=== PATIENT | male | born 1935 | race Caucasian/White ===

== ENCOUNTER 2019-10-06 23:16 | Inpatient (IN) ==
[2019-10-06] MEDS ORDERED: ONDANSETRON INJ 2 MG/ML 2 ML VIAL IV STA (23:25)
[2019-10-06] MEDS ORDERED: SODIUM CHLORIDE 0.9% 1000ML 500 ML IV ONE (23:25)
--- NOTE | 2019-10-06 23:30 | Emergency Department Note ---
Impression & Plan Acute distention of stomach, Vomiting ED Provider Note Name: SALONI MEDINA Age: 83 Sex: M Arrives Via: Ambulance Informant: EMS ED Provider: Chico Conner MD Chief Complaint: Vomiting Impression: Acute distension of stomach Vomiting Medical Decision Makin yr old male with advanced dementia as well as HTN, GERD, Hypothyroid and limited known history sent to ED by residential for evaluation of several hours vomiting. Reportedly diarrhea for several days and may have been consuming his own feces. By exam and CT seems Gallbladder removed in past though not noted in notes. His abdomen is soft/non-surgical. There is side note about stopping Cou madin on intermediate notes though unclear why/when. He was given zofran on arrival and no further vomiting. Labs unremarkable. CT done reveals gastric distension but otherwise no clear abnormalities requiring surgical intervention. Given amount gastric distension and vomiting at intermediate I think obs here with bowel rest and monitoring indicated. As single dose zofran seems to have stopped him vomiting at current, and his significant dementia issues, will hold off on NG tube at present unless further vomiting or other concerns. There is pneumobilia but with vomiting and GB removal and without lft elevation no indication this is cause/infectious etiology. Unclear whether eating feces may be contributing though without fever nor wbc elevation I don't see any indication for abx at this time. Prior Medical Record and Triage/Nursing Notes reviewed by Me Additional history obtained from residential Differentials:Gastroenteritis, food borne illness, infections, appendicitis, diverticulitis, inflammatory bowel disease, obstruction, GI bleed, biliary pathology, volvulus, as well as other pathologies. Vital Signs: reviewed and remarkable for no significant abnormalities Interventions: Saline lock, zofran 4mg IV, iv fluids Labs:Reviewed and remarkable for no significant abnormalities Imaging:[facility] Radiologist interpretation reviewed by me: CT abdo pelv wo con: Gastric distension, pneumobilia EKG:Per My Interpretation: Indication Vomiting: NSR 77 bpm, qtc 454. No Ec topy. No Ischemia. No previous for comparison Cardiac/Tele Monitoring: Cardiac Monitoring: An Order was placed for continuous cardiac monitoring. The monitor shows a rate of 80 with a normal sinus rhythm. Consults:Dr Ariel Lawrence hospitalist Plan: Disposition:Hospitalization. Condition: Fair Blood pressure:Normal.No Referral necessary Prescriptions:none PDMP: none History of Present Illness:83 / M arrives for evaluation of vomiting. Patient with history dementia, gerd, htn, hypothyroidism who arrives from local intermediate following several episodes of vomiting. Vomiting started this evening. He had been hving diarrhea which has been ongoing for several days apparently. No medications given. No vomiting en route nor dry heaving noted by EMS. Patient without difficulty breathing, nor fevers. Reportedly he ate some of his own feces at some point in the last few days per intermediate. Nothing seems to make vomiting better/worse. Unknown if sick contact. Patient with dementia and unable to give story. Unknown if previous surgical history. ROS: Unable to obtain secondary to dementia Past Medical History:GERD, HTN, Hypothyroid, Dementia (per intermediate paperwork) Past Surgical History:Unable to obtain secondary to dementia Family History:Unable to obtain secondary to dementia Social History:Lives in intermediate. Unable to obtain secondary to dementia Home Medications:See Below Allergies:Per chart heparin, bactrim Vitals:Blood Pressure: 117/65, Pulse 86, RR 19, T 37C, O2 100% on RA Physical Exam: GENERAL: Patient is chronically unwell appearing and in no acute distress. Severe dementia periodically mumbling to himself EYES: No scleral icterus, unremarkable pupils. ENT: Mucous membranes moist, no nasal congestion. NECK: No masses appreciated, nomeningismus, trachea is midline. RESPIRATORY: No dyspnea. Clear to auscultation and equal bilaterally. No wheeze, no rhonchi. CARDIOVASCULAR: Regular rate and rhythm.No murmurs, rubs, gallops appreciated. GASTROINTESTINAL: Hyperactive bowel sounds without significant distention and no TTP. There are no clear surgical scars though difficult to tell if old port scar umbilicus. BACK: No midline tenderness, no CVA tenderness EXTREMITIES: Normal motion all extremities, no cyanosis, no edema. NEUROLOGIC: Severe dementia, no acute motor or sensory deficits, no focal weakne ss, cranial nerves grossly intact. SKIN: No rash, no jaundice, no diaphoresis. ED Course: Times/Reassessments: Stable, no further vomiting Chico Conner MD Past Med/Surg History Social History Feels Safe at Home: Yes Smoking Status: Unknown if ever smoked Allergies Allergies Allergy/AdvReac Type Severity Reaction Status Date / Time heparin Allergy Unknown Unknown Verified 10/07/19 00:11 sulfamethoxazole Allergy Unknown Unknown Verified 10/07/19 00:11 [From Bactrim] trimethoprim [From Bactrim] Allergy Unknown Unknown Verified 10/07/19 00:11 Home Meds Home Medications Medication Instructions Recorded Confirmed acetaminophen [Tylenol] 650 mg PO DAILY PRN 10/06/19 10/07/19 artificial tears(hypromellose) 1 drp OPHTHALMIC (EYE) HS PRN 10/06/19 10/06/19 [Systane Gel] quetiapine [Seroquel] 100 mg PO DAILY 10/06/19 10/06/19 vitamins A,C,Y-[id number]-zadpkw 1 tab PO DAILY 10/06/19 10/06/19 [PreserVision AREDS] Natural Balance Tears 1 drp INSTIL DIRECTED PRN 10/07/19 10/07/19 mirtazapine 45 mg PO HS 10/07/19 10/07/19 nitroglycerin 0.4 mg SUBLINGUAL DIRECTED 10/07/19 10/07/19 sodium chloride [Saline Mist] 2 spray INTRANASAL DIRECTED PRN 10/07/19 10/07/19 tramadol 25 mg PO Q4H PRN 10/07/19 10/07/19 Results & Data (ED) Vital Signs Vital Signs - 24 hr 10/06/19 23:30 10/06/19 23:42 10/07/19 00:00 Temperature 37.0 C Temperature Source Oral Pulse Rate 85 87 86 Pulse Rate from SpO2 Sensor 85 91 H Respiratory Rate 24 18 19 Respiratory Effort / Characteristics Non-Labored Respiratory Depth Normal Blood Pressure 127/71 136/68 117/65 Blood Pressure Mean 89 94 91 Pulse Oximetry 98 100 100 Oxygen Delivery Method Room Air Room Air Room Air Sepsis Recent Fever Within 48 Hours No Sepsis New/Unexplained Change in Mental Status No Sepsis Action Taken by Nursing No Action Required 10/07/19 00:30 10/07/19 01:01 10/07/19 01:30 Temperature Temperature Source Pulse Rate 78 76 110 H Pulse Rate from SpO2 Sensor 80 75 82 Respiratory Rate 24 20 16 Respiratory Effort / Characteristics Respiratory Depth Blood Pressure 130/74 123/82 133/79 Blood Pressure Mean 79 107 96 Pulse Oximetry 99 100 98 Oxygen Delivery Method Room Air Room Air Room Air Sepsis Recent Fever Within 48 Hours Sepsis New/Unexplained Change in Mental Status Sepsis Action Taken by Nursing 10/07/19 02:31 Temperature Temperature Source Pulse Rate 99 H Pulse Rate from SpO2 Sensor 98 H Respiratory Rate 18 Respiratory Effort / Characteristics Respiratory Depth Blood Pressure 97/54 L Blood Pressure Mean 55 Pulse Oximetry 93 Oxygen Delivery Method Room Air Sepsis Recent Fever Within 48 Hours Sepsis New/Unexplained Change in Mental Status Sepsis Action Taken by Nursing Laboratory Data Result diagrams: 10/06/19 23:35 10/06/19 23:35 Lab Results 10/06/19 10/06/19 10/06/19 Range/Units 23:35 23:35 23:43 WBC 5.20 (4.8-10.8) K/uL RBC 3.15 L (4.7-6.1) M/uL Hgb 10.5 L (14.0-18.0) g/dL Hct 31.9 L (42-52) % MCV 101.3 H (80-100) fL MCH 33.3 (25-34) pg MCHC 32.9 (32-36) g/dL RDW Std Deviation 53.1 H (36.4-46.3) fL RDW Coeff of Shayne 14.4 (11.5-14.5) % Plt Count 194 (130-400) K/uL MPV 9.5 (7.4-10.4) fL Immature Gran % (Auto) 0.2 % Neut % (Auto) 79.8 % Lymph % (Auto) 8.7 % [place] % (Auto) 10.0 % Eos % (Auto) 1.3 % Baso % (Auto) 0.0 % Immature Gran # (Auto) 0.01 (0.00-0.02) K/uL Neut # (Auto) 4.15 (1.4-6.5) K/uL Lymph # (Auto) 0.45 L (1.2-3.4) K/uL [place] # (Auto) 0.52 (0.11-0.59) K/uL Eos # (Auto) 0.07 (0-0.5) K/uL Baso # (Auto) 0.00 (0-0.2) K/uL PT (9.0-12.0) Seconds INR (0.9-1.1) Sodium 138 (136-145) mmol/L Potassium 4.4 (3.5-5.1) mmol/L Chloride 108 H (98-107) mmol/L Carbon Dioxide 24 (21-32) mmol/L Anion Gap 6.0 (3-11) BUN 19 H (7-18) mg/dl Creatinine 1.22 (0.6-1.4) mg/dl Est Cr Clr Drug Dosing Not Reportable Est GFR ( Amer) 64.0 Est GFR (Non-Af Amer) 55.3 BUN/Creatinine Ratio 15.6 (10-20) Glucose 116 H (70-99) mg/dl Calcium 8.6 (8.5-10.1) mg/dl Magnesium 1.6 L (1.8-2.4) mg/dl Total Bilirubin 0.3 (0.2-1) mg/dl Direct Bilirubin < 0.1 (0-0.2) mg/dl AST 28 (15-37) U/L ALT 20 (12-78) U/L Alkaline Phosphatase 168 H (45-117) U/L Troponin I < 0.015 (0-0.045) ng/ml Total Protein 7.1 (6.4-8.2) gm/dl Albumin 3.0 L (3.4-5.0) gm/dl Lipase 383 (73-393) U/L Procalcitonin (0-0.5) ng/ml Specimen Hemolysis Urine Color Dark Yellow Urine Appearance Cloudy A (Clear) Urine pH 5.0 (4.5-7.5) Ur Specific [place] 1.029 (1.000-1.030) Urine Protein 1+ H (Negative) Urine Glucose (UA) Negative (Negative) Urine Ketones Trace H (Negative) Urine Blood Negative (Negative) Urine Nitrite Negative (Negative) Urine Bilirubin Negative (Negative) Urine Urobilinogen Negative (Negative) Ur Leukocyte Esterase Negative (Negative) Urine WBC (Auto) 1-5 (0-5) /hpf Urine RBC (Auto) 0-4 (0-4) /hpf U Hyaline Cast (Auto) 1-5 (0-5) /lpf U Epithel Cells (Auto) >30 H (0-5) /lpf Urine Bacteria (Auto) Negative (Negative) Ur Renal Epithelial Cell Not Reportable Calcium Oxalate Crystal Present A (None Prsent) Urine Yeast Not Reportable COVID-19 PCR (Negative) 10/07/19 10/07/19 10/07/19 Range/Units 00:32 00:33 01:35 WBC (4.8-10.8) K/uL RBC (4.7-6.1) M/uL Hgb (14.0-18.0) g/dL Hct (42-52) % MCV (80-100) fL MCH (25-34) pg MCHC (32-36) g/dL RDW Std Deviation (36.4-46.3) fL RDW Coeff of Shayne (11.5-14.5) % Plt Count (130-400) K/uL MPV (7.4-10.4) fL Immature Gran % (Auto) % Neut % (Auto) % Lymph % (Auto) % [place] % (Auto) % Eos % (Auto) % Baso % (Auto) % Immature Gran # (Auto) (0.00-0.02) K/uL Neut # (Auto) (1.4-6.5) K/uL Lymph # (Auto) (1.2-3.4) K/uL [place] # (Auto) (0.11-0.59) K/uL Eos # (Auto) (0-0.5) K/uL Baso # (Auto) (0-0.2) K/uL PT 17.2 H (9.0-12.0) Seconds INR 1.7 H (0.9-1.1) Sodium (136-145) mmol/L Potassium (3.5-5.1) mmol/L Chloride (98-107) mmol/L Carbon Dioxide (21-32) mmol/L Anion Gap (3-11) BUN (7-18) mg/dl Creatinine (0.6-1.4) mg/dl Est Cr Clr Drug Dosing Est GFR ( Amer) Est GFR (Non-Af Amer) BUN/Creatinine Ratio (10-20) Glucose (70-99) mg/dl Calcium (8.5-10.1) mg/dl Magnesium (1.8-2.4) mg/dl Total Bilirubin (0.2-1) mg/dl Direct Bilirubin (0-0.2) mg/dl AST (15-37) U/L ALT (12-78) U/L Alkaline Phosphatase (45-117) U/L Troponin I (0-0.045) ng/ml Total Protein (6.4-8.2) gm/dl Albumin (3.4-5.0) gm/dl Lipase (73-393) U/L Procalcitonin 0.05 (0-0.5) ng/ml Specimen Hemolysis Urine Color Urine Appearance (Clear) Urine pH (4.5-7.5) Ur Specific [place] (1.000-1.030) Urine Protein (Negative) Urine Glucose (UA) (Negative) Urine Ketones (Negative) Urine Blood (Negative) Urine Nitrite (Negative) Urine Bilirubin (Negative) Urine Urobilinogen (Negative) Ur Leukocyte Esterase (Negative) Urine WBC (Auto) (0-5) /hpf Urine RBC (Auto) (0-4) /hpf U Hyaline Cast (Auto) (0-5) /lpf U Epithel Cells (Auto) (0-5) /lpf Urine Bacteria (Auto) (Negative) Ur Renal Epithelial Cell Calcium Oxalate Crystal (None Prsent) Urine Yeast COVID-19 PCR NEGATIVE (Negative) Administered Medications Parenteral Electrolytes (Normosol-R) 1,000 mls @ 200 mls/hr IV .Q5H ONE Stop: 10/07/19 06:50 Last Admin: 10/07/19 02:38 Dose: 200 mls/hr Documented by: [id number] Discontinued Medications Acetaminophen (Tylenol) Confirm Administered Dose 650 mg .ROUTE .STK-MED ONE Stop: 10/07/19 03:17 Last Admin: 10/07/19 03:18 Dose: 650 mg Documented by: [id number] Sodium Chloride (Nss 1000ml) 500 mls @ 999 mls/hr IV .Q31M ONE Stop: 10/06/19 23:55 Last Infusion: 10/07/19 01:22 Dose: 0 mls/hr Documented by: [id number] Admin: 10/06/19 23:59 Dose: 999 mls/hr Documented by: [id number] Famotidine (Pepcid 20mg Iv Push) 20 mg in 5 mls @ 2.5 mls/min IV NOW STA Stop: 10/07/19 01:28 Last Admin: 10/07/19 01:43 Dose: 2.5 mls/min Documented by: [id number] Magnesium Sulfate/Dextrose (Magnesium Sulfate / D5w) 1 gm in 100 mls @ 100 mls/hr IV Q1H DENIS Stop: 10/07/19 03:50 Last Infusion: 10/07/19 04:40 Dose: 0 mls/hr Documented by: [id number] Admin: 10/07/19 03:40 Dose: 100 mls/hr Documented by: [id number] Infusion: 10/07/19 03:39 Dose: 0 mls/hr Documented by: [id number] Admin: 10/07/19 02:38 Dose: 100 mls/hr Documented by: [id number] Magnesium Sulfate/Dextrose (Magnesium Sulfate / D5w) Confirm Administered Dose 2 gm IV .STK-MED ONE Stop: 10/07/19 02:26 Last Admin: 10/07/19 02:38 Dose: Not Given Documented by: [id number] Ondansetron HCl (Zofran) 4 mg IV NOW STA Stop: 10/06/19 23:26 Last Admin: 10/07/19 00:00 Dose: 4 mg Documented by: [id number] Discharge Plan Visit Data *Final* Discharge Date/Time: 10/07/19 04:35 Chief Complaint: Vomiting Stated Complaint: vomiting ED Provider: Chico Conner Discharge Problem: Acute distention of stomach, Vomiting Patient Disposition: Admitted As Inpatient Discharge Instructions Interventions: ED Discharge Assessment Last Done: 10/07/19 04:35 Discharge Problem: Vomiting Qualifiers: Vomiting type: bilious vomiting Nausea presence: with nausea Qualified Code(s): R11.14 - Bilious vomiting
[2019-10-06 23:52] LABS: Eosinophils # (auto) 0.07 K/uL (0-0.5); Eosinophils % (auto) 1.3 %; Hematocrit (blood only) 31.9 % (42-52); Hemoglobin 10.5 g/dL (14.0-18.0); Immature Granulocytes # (auto) 0.01 K/uL (0.00-0.02); Immature Granulocytes % (auto) 0.2 %; Lymphocytes # (auto) 0.45 K/uL (1.2-3.4); Lymphocytes % (auto) 8.7 %; Mean Corpuscular Hemoglobin 33.3 pg (25-34); Mean Corpuscular Hgb Conc 32.9 g/dL (32-36); Mean Corpuscular Volume 101.3 fL (80-100); Mean Platelet Volume 9.5 fL (7.4-10.4); Monocytes # (auto) 0.52 K/uL (0.11-0.59); Neutrophils # (auto) 4.15 K/uL (1.4-6.5); Neutrophils % (auto) 79.8 %; Platelet Count 194 K/uL (130-400); RDW Coefficient of Variation 14.4 % (11.5-14.5); RDW Standard Deviation 53.1 fL (36.4-46.3); Red Blood Count 3.15 M/uL (4.7-6.1)
[2019-10-07 00:01] LABS: Appearance Urine Cloudy (Clear); Bacteria Urine Automated Negative (Negative); Bilirubin Urine Negative (Negative); Blood Urine Negative (Negative); Color Urine Dark Yellow; Epithelial Cell Urine Auto >30 /lpf (0-5); Glucose Urine UA Negative (Negative); Ketones Urine Trace (Negative); Leukocyte Esterase Urine Negative (Negative); Nitrite Urine Negative (Negative); Protein Urine 1+ (Negative); Specific Gravity Urine 1.029 (1.000-1.030); Urobilinogen Urine Negative (Negative)
[2019-10-07 00:17] LABS: RBC Urine Automated 0-4 /hpf (0-4)
[2019-10-07 00:18] LABS: Calcium Oxalate Crystals Urine Present (None Prsent)
[2019-10-07 00:29] LABS: Alanine Aminotransferase 20 U/L (12-78); Alkaline Phosphatase 168 U/L (45-117); Aspartate Aminotransferase 28 U/L (15-37); BUN Creatinine Ratio 15.6 (10-20); Bilirubin Direct < 0.1 mg/dl (0-0.2); Bilirubin,Total 0.3 mg/dl (0.2-1); Blood Urea Nitrogen 19 mg/dl (7-18); Calcium 8.6 mg/dl (8.5-10.1); Carbon Dioxide 24 mmol/L (21-32); Chloride 108 mmol/L (98-107); Est GFR (Non-African American) 55.3; Glucose 116 mg/dl (70-99); Lipase 383 U/L (73-393); Potassium 4.4 mmol/L (3.5-5.1); Sodium 138 mmol/L (136-145); Total Protein 7.1 gm/dl (6.4-8.2); Troponin I < 0.015 ng/ml (0-0.045)
[2019-10-07 00:53] LABS: INR 1.7 (0.9-1.1); Prothrombin Time 17.2 Seconds (9.0-12.0)
[2019-10-07] MEDS ORDERED: FAMOTIDINE 20MG IV PUSH 20 MG/5 ML SYR IV STA (01:27)
[2019-10-07 01:45] LABS: Magnesium 1.6 mg/dl (1.8-2.4)
[2019-10-07] MEDS ORDERED: NORMOSOL-R 1,000 ML IV ONE ×2 (01:51→06:00)
--- NOTE | 2019-10-07 02:23 | History & Physical Report ---
Date of Service October 07, 2019 Assessment & Plan (1) Gastroenteritis: Rule out C. difficile Patient not toxic. chronic diastolic heart failure (EF 63%, TTE 2017), patient on the dry side CAD status post CABG PAF, previously on beta-tea and Coumadin prior to [facility]p stay. Patient currently off both medications for unclear reasons. ? Off Coumadin secondary to fall risk given incidental finding of pelvic fractures on CT Patient initially A. fib as per case monitor upon arrival at the ER, currently sinus tachycardia secondary to illness and agitation. hx mitral valve repair hypertension, stable pulmonary hypertension, LYNN as per records DM 2 diet-controlled, recent outpatient hemoglobin A1c of 5.27 May 2019 BPH as per records chronic anemia, hemoglobin at baseline hypothyroidism as per records, euthyroid today, currently not on levothyroxine GERD, previously on PPI prior to usp stay. dementia OBS Medical telemetry given bursts of tachycardia Stool C. difficile Supportive management for gastroenteritis symptoms IVF Beta-tea while inpatient. PPI while inpatient for gastritis on CT. Zyprexa PRN agitation, one-to-one monitoring PRN ISS BG goal [id number], update hemoglobin A1c DVT prophylaxis. SCDs for now until bleeding concerns clarified with [facility] provider in a.m. Full code as per usp staff. Attempted to contact patient's family over the phone to re-address patient CODE STATUS and to discuss plan of care. No answer. Left voice messages. Ms. Colleen Mueller (daughter), contact #[phone]. Mr. Wilkinson Jr. Linden (son), contact #[phone]. Text document was generated using [employer] voice recognition software. It may contain grammatical or spelling errors. Kindly contact undersigned for clarification of any documentation item in question. History of Present Illness Chief Complaint: Vomiting, diarrhea as per records Primary Care Provider: Dr. Jed [facility] History obtained from [facility]p staff and records. Medical history significant for chronic diastolic heart failure (EF 63%, TTE 2017), CAD status post CABG, A. fib recently taken off Coumadin, history of mitral valve repair, history of SVT status post ablation, hypertension, hyperlipidemia, pulmonary hypertension, LYNN as per records, DM 2 diet- controlled, BPH as per records, chronic anemia (baseline hemoglobin of 10), hypothyroidism as per records, skin cancer as per records, GERD, dementia. Patient transitioned to [facility] assisted living facility last May 2019 because of worsening dementia. As per records, patient noted to have diarrhea the last few days. Imodium initiated at the [facility]. Patient noted to be eating his feces today. Subsequent emesis. No fever, no chills. No patient complaints of chest pain or shortness of breath. No outpatient testing for C. difficile. Patient's Coumadin stopped a few days ago by usp provider for reasons unknown to usp staff. Patient brought to the ER for evaluation. Medical History as above Surgical History : CABG, cholecystectomy, pericardiectomy, mitral valve reconstruction, shoulder surgery, tonsillectomy/adenoidectomy, hernia repair, thoracotomy with exploration Family History : Breast cancer, heart disease Personal/Social history : Non-smoker, no EtOH intake, retired computer systems consultant, [facility] resident Allergies Allergy/AdvReac Type Severity Reaction Status Date / Time heparin Allergy Unknown Unknown Verified 10/07/19 00:11 sulfamethoxazole Allergy Unknown Unknown Verified 10/07/19 00:11 [From Bactrim] trimethoprim [From Bactrim] Allergy Unknown Unknown Verified 10/07/19 00:11 Home Medications Home Medications Medication Instructions Recorded Confirmed Type acetaminophen [Tylenol] 650 mg PO DAILY PRN 10/06/19 10/07/19 History artificial tears(hypromellose) 1 drp OPHTHALMIC (EYE) HS PRN 10/06/19 10/06/19 History [Systane Gel] quetiapine [Seroquel] 100 mg PO DAILY 10/06/19 10/06/19 History vitamins A,C,O-snnt-vzgxvv 1 tab PO DAILY 10/06/19 10/06/19 History [PreserVision AREDS] Natural Balance Tears 1 drp INSTIL DIRECTED PRN 10/07/19 10/07/19 History mirtazapine 45 mg PO HS 10/07/19 10/07/19 History nitroglycerin 0.4 mg SUBLINGUAL DIRECTED 10/07/19 10/07/19 History sodium chloride [Saline Mist] 2 spray INTRANASAL DIRECTED PRN 10/07/19 10/07/19 History tramadol 25 mg PO Q4H PRN 10/07/19 10/07/19 History Past Med/Surg History Social History Preferred Language: Albanian Current Living Situation: [facility] Feels Safe at Home: Yes Smoking Status: Unknown if ever smoked Review of Systems Review of Systems: Could not be reliably obtained Physical Exam Physical Exam: GENERAL: Demented, slightly restless , no respiratory distress SKIN: Pallor , warm HEENT: Pale palpebral conjunctivae, no ptosis, dry buccal mucosa NECK : Supple, no tenderness CHEST : Decreased breath sounds , no tenderness HEART : Tachycardic , systolic murmur ABDOMEN: Some distention, nontender EXTREMITIES : No LE swelling/tenderness, no other conspicuous deformities noted NEUROLOGIC : Demented, incoherent, no facial asymmetry, no other gross focality Results & Data Results & Data ([facility]) Vital Signs (Past 12 Hours) Vital Signs Temp Pulse Resp BP Pulse Ox 10/07/19 01:30 110 H 16 133/79 98 10/07/19 01:01 76 20 123/82 100 10/07/19 00:30 78 24 130/74 99 10/07/19 00:00 86 19 117/65 100 10/06/19 23:42 87 18 136/68 100 10/06/19 23:30 37.0 C 85 24 127/71 98 Laboratory Results Laboratory Results WBC 5.20 K/uL (4.8-10.8) 10/06/19 23:35 RBC 3.15 M/uL (4.7-6.1) L 10/06/19 23:35 Hgb 10.5 g/dL (14.0-18.0) L 10/06/19 23:35 Hct 31.9 % (42-52) L 10/06/19 23:35 MCV 101.3 fL (80-100) H 10/06/19 23:35 MCH 33.3 pg (25-34) 10/06/19 23:35 MCHC 32.9 g/dL (32-36) 10/06/19 23:35 RDW Std Deviation 53.1 fL (36.4-46.3) H 10/06/19 23:35 RDW Coeff of Shayne 14.4 % (11.5-14.5) 10/06/19 23:35 Plt Count 194 K/uL (130-400) 10/06/19 23:35 MPV 9.5 fL (7.4-10.4) 10/06/19 23:35 Immature Gran % (Auto) 0.2 % 10/06/19 23:35 Neut % (Auto) 79.8 % 10/06/19 23:35 Lymph % (Auto) 8.7 % 10/06/19 23:35 [place] % (Auto) 10.0 % 10/06/19 23:35 Eos % (Auto) 1.3 % 10/06/19 23:35 Baso % (Auto) 0.0 % 10/06/19 23:35 Immature Gran # (Auto) 0.01 K/uL (0.00-0.02) 10/06/19 23:35 Neut # (Auto) 4.15 K/uL (1.4-6.5) 10/06/19 23:35 Lymph # (Auto) 0.45 K/uL (1.2-3.4) L 10/06/19 23:35 [place] # (Auto) 0.52 K/uL (0.11-0.59) 10/06/19 23:35 Eos # (Auto) 0.07 K/uL (0-0.5) 10/06/19 23:35 Baso # (Auto) 0.00 K/uL (0-0.2) 10/06/19 23:35 PT 17.2 Seconds (9.0-12.0) H 10/07/19 00:32 INR 1.7 (0.9-1.1) H 10/07/19 00:32 Sodium 138 mmol/L (136-145) 10/06/19 23:35 Potassium 4.4 mmol/L (3.5-5.1) 10/06/19 23:35 Chloride 108 mmol/L (98-107) H 10/06/19 23:35 Carbon Dioxide 24 mmol/L (21-32) 10/06/19 23:35 Anion Gap 6.0 (3-11) 10/06/19 23:35 BUN 19 mg/dl (7-18) H 10/06/19 23:35 Creatinine 1.22 mg/dl (0.6-1.4) 10/06/19 23:35 Est Cr Clr Drug Dosing Not Reportable 10/06/19 23:35 Est GFR ( Amer) 64.0 10/06/19 23:35 Est GFR (Non-Af Amer) 55.3 10/06/19 23:35 BUN/Creatinine Ratio 15.6 (10-20) 10/06/19 23:35 Glucose 116 mg/dl (70-99) H 10/06/19 23:35 Calcium 8.6 mg/dl (8.5-10.1) 10/06/19 23:35 Magnesium 1.6 mg/dl (1.8-2.4) L 10/06/19 23:35 Total Bilirubin 0.3 mg/dl (0.2-1) 10/06/19 23:35 Direct Bilirubin < 0.1 mg/dl (0-0.2) 10/06/19 23:35 AST 28 U/L (15-37) 10/06/19 23:35 ALT 20 U/L (12-78) 10/06/19 23:35 Alkaline Phosphatase 168 U/L (45-117) H 10/06/19 23:35 Troponin I < 0.015 ng/ml (0-0.045) 10/06/19 23:35 Total Protein 7.1 gm/dl (6.4-8.2) 10/06/19 23:35 Albumin 3.0 gm/dl (3.4-5.0) L 10/06/19 23:35 Lipase 383 U/L (73-393) 10/06/19 23:35 Specimen Hemolysis 10/06/19 23:35 Urine Color Dark Yellow 10/06/19 23:43 Urine Appearance Cloudy (Clear) A 10/06/19 23:43 Urine pH 5.0 (4.5-7.5) 10/06/19 23:43 Ur Specific [place] 1.029 (1.000-1.030) 10/06/19 23:43 Urine Protein 1+ (Negative) H 10/06/19 23:43 Urine Glucose (UA) Negative (Negative) 10/06/19 23:43 Urine Ketones Trace (Negative) H 10/06/19 23:43 Urine Blood Negative (Negative) 10/06/19 23:43 Urine Nitrite Negative (Negative) 10/06/19 23:43 Urine Bilirubin Negative (Negative) 10/06/19 23:43 Urine Urobilinogen Negative (Negative) 10/06/19 23:43 Ur Leukocyte Esterase Negative (Negative) 10/06/19 23:43 Urine WBC (Auto) 1-5 /hpf (0-5) 10/06/19 23:43 Urine RBC (Auto) 0-4 /hpf (0-4) 10/06/19 23:43 U Hyaline Cast (Auto) 1-5 /lpf (0-5) 10/06/19 23:43 U Epithel Cells (Auto) >30 /lpf (0-5) H 10/06/19 23:43 Urine Bacteria (Auto) Negative (Negative) 10/06/19 23:43 Ur Renal Epithelial Cell Not Reportable 10/06/19 23:43 Calcium Oxalate Crystal Present (None Prsent) A 10/06/19 23:43 Urine Yeast Not Reportable 10/06/19 23:[address] abdomen pelvis initial read: Gastric distention and mild gastric antrum thickening. Healing fracture deformities right superior and inferior ramus and right sacrum. Correlate with recent trauma. Age-indeterminate fractures of L1-L2 and L4. Chest x-ray as per my interpretation: Cardiomegaly, atelectasis EKG as per my interpretation : Rate 75, A. fib, normal axis, diffuse T wave abnormalities
[2019-10-07] MEDS ORDERED: MAGNESIUM SULFATE 1GM / D5W BAG IV ONE (02:25)
[2019-10-07] MEDS: MAGNESIUM SULFATE / D5W 1 GM/100 ML BAG IV SCH ×2 (02:38→03:40)
[2019-10-07] MEDS ORDERED: ACETAMINOPHEN 325 MG TAB ONE (03:16)
[2019-10-07] MEDS ORDERED: PROMETHAZINE HCL 12.5 MG in SODIUM CHLORIDE 0.9% 50 ML IV PRN (04:53)
[2019-10-07] MEDS ORDERED: ACETAMINOPHEN 325 MG TAB PO PRN (04:53)
[2019-10-07] MEDS ORDERED: TRAMADOL HCL 50 MG TABLET PO PRN (04:53)
[2019-10-07] MEDS ORDERED: GLUCOSE 10 TABS/TUBE PO PRN (05:01)
[2019-10-07] MEDS ORDERED: DEXTROSE 50% 50 ML SYRINGE IV PRN (05:01)
[2019-10-07] MEDS ORDERED: GLUCAGON FOR INJ 1 MG VIAL SQ PRN (05:01)
[2019-10-07] MEDS ORDERED: GLUCOSE 40% GEL 15 GM TUBE PO PRN (05:01)
[2019-10-07] MEDS ORDERED: CARBOHYDRATES FOR HYPOGLYCEMIA PO PRN (05:01)
[2019-10-07] MEDS: METOPROLOL TARTRATE 25 MG TAB PO SCH ×2 (06:33→20:02)
--- NOTE | 2019-10-07 07:12 | XRay Report ---
XR chest 1V portable CLINICAL HISTORY: Vomiting, confusion nausea COMPARISON STUDY: No previous studies for comparison. FINDINGS: Interstitial infiltrative process left lung base. Lungs otherwise appear clear. Mild cardio megaly post median sternotomy. Total right shoulder arthroplasty. IMPRESSION: Interstitial infiltrate left lung base. ACT 112: Negative or not required by law. The above report was generated using voice recognition software. It may contain grammatical, syntax or spelling errors. Electronically signed by: Price Garcia M.D. 10/07/2019 7:11 AM
--- NOTE | 2019-10-07 07:23 | CT Scan Report ---
CT abd pelvis wo con CT DOSE: 395.68 mGy.cm HISTORY: Vomiting, confusion TECHNIQUE: Multiaxial CT images of the abdomen and pelvis were performed without contrast. A dose lo wering technique was utilized adhering to the principles of ALARA. COMPARISON STUDY: None. FINDINGS: Limited study due to the absence of intra-abdominal fat. The lung bases are grossly clear. Cardiomegaly. Several vascular calcifications the kidneys are present. No evidence for hydronephrosis . Bowel pattern is nonobstructive. Bladder is midline. No significant free fluid within the cul-de-sac. Air within the biliary ductal system presumably on a postoperative basis. Moderate gastric distention. Nonobstructive bowel pattern. Evidence for fractures of the right pubic ring and right symphysis pubis. Age is indeterminant. Verti jossue sacral insufficiency fracture right sacrum. Moderate compression deformities L1-L2 and L4. IMPRESSION: 1. Gastric distention raises the possibility of nonspecific gastroenteritis. 2. Otherwise somewhat limited exam due to the absence of fat and contrast. 3. Fractures of the right pubic ring, right symphysis pubis, right sacrum, as well as at multiple lev els of the lumbar spine of indeterminate age. ACT 112: Negative or not required by law. The above report was generated using voice recognition software. It may contain grammatical, syntax or spelling errors. Electronically signed by: Price Garcia M.D. 10/07/2019 7:22 AM
[2019-10-07] MEDS: QUETIAPINE FUMARATE 100 MG TABLET PO SCH (07:58)
[2019-10-07] MEDS: PANTOprazole 40 MG TAB PO SCH (07:58)
[2019-10-07] MEDS ORDERED: PATIENT'S HEIGHT AND/OR WEIGHT NEEDED SCH (08:30)
[2019-10-07] MEDS: INSULIN ASPART 100 UNITS/ML 3 ML PEN SC SCH ×4 (08:32→21:24)
[2019-10-07] MEDS ORDERED: ASPIRIN 81 MG ECTAB PO SCH (09:00)
[2019-10-07] MEDS: FONDAPARINUX 2.5 MG/0.5 ML SYR SQ SCH (10:24)
--- NOTE | 2019-10-07 14:29 | Electrocardiogram Report ---
Test Reason : Blood Pressure : / mmHG Vent. Rate : 077 BPM Atrial Rate : 250 BPM P-R Int : 000 ms QRS Dur : 092 ms QT Int : 402 ms P-R-T Axes : 000 027 122 degrees QTc Int : 454 ms Normal sinus rhythm Nonspecific T wave abnormality Abnormal ECG No previous ECGs available Confirmed by Reji Georges ([id number]) on 10/07/2019 2:29:47 PM Referred By: ANGEL BOGGS Confirmed By:Reji Georges
--- NOTE | 2019-10-07 15:10 | Hospitalist Progress Note ---
Date of Service October 07, 2019 Assessment & Plan (1) Gastroenteritis: Present on admission with episode of diarrhea COVID [address] abd/pelvis showed gastric distention raises the possibility of nonspecific gastroenteritis. Procalcitonin and WBC normal Will check stool for c diff Has not had any diarrhea so far Continue monitor electrolytes Afib Currently on NSR Coumadin was discontinue due to fall risk that led to fracture Metoprolol was discontinued due to hypotension Will start on low dose metoprolol 12.5 mg Continue monitor Chronic diastolic heart failure CXR showed showed interstitial infiltrative process left lung base. Lungs otherwise appear clear. No sign of volume overload Will monitor closely for fluid overload Diabetes Last Hba1c 5.9 on 06/07 Will check Hba1c Continue monitor BS Pelvis fracture Due to fall CT abd/pelvis showed fractures of the right pubic ring, right symphysis pubis, right sacrum, as well as at multiple levels of the lumbar spine of indeterminate age. Fall precaution PT/OT eval Dementia At baseline Continue seroquel Will discussed with case management about placement DVT px on Arixtra CODE status DNR Ms. Colleen Mueller (daughter), contact #[phone]. Mr. Wilkinson Jr. Linden (son), contact #[phone]. Text document was generated using [employer] voice recognition software. It may contain grammatical or spelling errors. Kindly contact undersigned for clarification of any documentation item in questi on. Admission and Anticipated Discharge Date Admission Date: October 07, 2019 Subjective Pt was seen and examined Lying in bed with 1 to 1 with sitter at bedside No episodes of diarrhea so far as per nursing staff Confused as baseline No agitation for now Physical Exam Physical Exam: General- No acute distress Head- atraumatic Eyes- PERRL, EOMI, ENT- oropharynx clear Neck- supple, no JVD Lungs- clear to auscultation Heart- Tachycardia, +murmur Abdomen- normal bowel sounds, soft, nontender Extremities- no calf tenderness Neuro- alert, confused, move all 4 extremities Skin- warm & dry Results & Data Results & Data ([facility]) Vital Signs (Past 12 Hours) Vital Signs Temp Pulse Pulse Resp BP BP Pulse Ox 10/07/19 09:00 105 H 10/07/19 07:55 36.9 C 90 18 121/64 96 10/07/19 05:53 109 H 10/07/19 05:26 37.6 C H 75 16 131/87 96 10/07/19 04:30 96 H 18 133/70 96 10/07/19 03:31 96 H 23 124/71 92 10/07/19 03:02 92 H 18 140/82 95
[2019-10-07] MEDS: OLANZapine 10 MG/2.1 ML SDV IM PRN (19:56)
[2019-10-08] MEDS: OLANZapine 10 MG/2.1 ML SDV IM PRN (03:57)
[2019-10-08 06:06] LABS: Estimated Average Glucose 108 mg/dl; Hemoglobin A1C 5.4 % (4.5-5.6)
[2019-10-08 07:43] LABS: Basophils # (auto) 0.03 K/uL (0-0.2); Basophils % (auto) 0.5 %; Eosinophils # (auto) 0.12 K/uL (0-0.5); Eosinophils % (auto) 1.9 %; Hematocrit (blood only) 31.1 % (42-52); Hemoglobin 10.2 g/dL (14.0-18.0); Immature Granulocytes # (auto) 0.02 K/uL (0.00-0.02); Immature Granulocytes % (auto) 0.3 %; Lymphocytes # (auto) 0.62 K/uL (1.2-3.4); Mean Corpuscular Hemoglobin 32.7 pg (25-34); Mean Corpuscular Hgb Conc 32.8 g/dL (32-36); Mean Corpuscular Volume 99.7 fL (80-100); Mean Platelet Volume 9.7 fL (7.4-10.4); Monocytes # (auto) 0.53 K/uL (0.11-0.59); Monocytes % (auto) 8.5 %; Neutrophils # (auto) 4.91 K/uL (1.4-6.5); Neutrophils % (auto) 78.8 %; Platelet Count 185 K/uL (130-400); RDW Coefficient of Variation 13.9 % (11.5-14.5); RDW Standard Deviation 50.1 fL (36.4-46.3); Red Blood Count 3.12 M/uL (4.7-6.1); White Blood Count 6.23 K/uL (4.8-10.8)
[2019-10-08 07:53] LABS: Partial Thromboplastin Ratio 1.5; Partial Thromboplastin Time 42.7 Seconds (21.0-31.0)
[2019-10-08 08:15] LABS: BUN Creatinine Ratio 15.8 (10-20); Calcium 8.5 mg/dl (8.5-10.1); Creatinine Clr Calc Pharmacy 40.5 ml/min; Est GFR (African American) 78.6; Est GFR (Non-African American) 67.8; Potassium 3.7 mmol/L (3.5-5.1)
[2019-10-08] MEDS: FONDAPARINUX 2.5 MG/0.5 ML SYR SQ SCH (08:19)
[2019-10-08] MEDS: METOPROLOL TARTRATE 25 MG TAB PO SCH ×2 (08:20→21:20)
[2019-10-08] MEDS: INSULIN ASPART 100 UNITS/ML 3 ML PEN SC SCH ×4 (08:20→21:27)
[2019-10-08] MEDS: QUETIAPINE FUMARATE 100 MG TABLET PO SCH (08:20)
[2019-10-08] MEDS: PANTOprazole 40 MG TAB PO SCH (08:20)
--- NOTE | 2019-10-08 14:05 | Palliative Care Consultation ---
Date of Consultation October 08, 2019 Assessment & Plan (1) Palliative care encounter: Briefly patient is an 83-year-old male who is a resident of [facility] who was admitted on 10/06 for nausea, vomiting and diarrhea. Patient with severe dementia, unable to give any history or ROS. Only other medical problem via chart review was anemia. Patient's speech is nonsensical, unable to follow simple commands or answer simple questions with a yes or no. Family reports this is a rapid decline since he was placed in a facility. Daughter states patient drove to [place] himself this past March. -Patient on Seroquel, also required a PRN Zyprexa overnight for agitation. Patient's nausea and vomiting have subsided. - Spoke with patient's daughter, Annel MuellerByrhywfi-[phone], she is driving to [place] to visit her grandson with 2 other toddlers. Also spoke with patient's son Minh Cheatham, -their goal is to have patient return to [facility], they are willing to accept him back on hospice care. Facility prefers [facility]. Hospice referral is agreeable to both son and daughter. 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 -Collaborated with case management regarding hospice referral. 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 Patient with severe dementia, unable to give any history or ROS. Only other medical problem via chart review was anemia. Patient's speech is nonsensical, unable to follow simple commands or answer simple questions with a yes or no. Family reports this is a rapid decline since he was placed in a facility. Daughter s viviane patient drove to [place] himself this past March. -Patient on Seroquel, also required a PRN Zyprexa overnight for agitation. Patient's nausea and vomiting have subsided. Spoke with patient's daughter, Annel MuellerOagschko-[phone], she is driving to [place] to visit her grandson with 2 other toddlers. Also spoke with patient's son Minh Cheatham, -their goal is to have patient return to [facility], they are willing to accept him back on hospice care. Facility prefers [facility]. Hospice referral is agreeable to both son and daughter. 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 Allergies Allergy/AdvReac Type Severity Reaction Status Date / Time heparin Allergy Unknown Unknown Verified 10/07/19 00:11 sulfamethoxazole Allergy Unknown Unknown Verified 10/07/19 00:11 [From Bactrim] trimethoprim [From Bactrim] Allergy Unknown Unknown Verified 10/07/19 00:11 Home Medications Home Medications Medication Instructions Recorded Confirmed Type acetaminophen [Tylenol] 650 mg PO DAILY PRN 10/06/19 10/07/19 History artificial tears(hypromellose) 1 drp OPHTHALMIC (EYE) HS PRN 10/06/19 10/06/19 History [Systane Gel] quetiapine [Seroquel] 100 mg PO DAILY 10/06/19 10/06/19 History vitamins A,C,F-[id number] 1 tab PO DAILY 10/06/19 10/06/19 History [PreserVision AREDS] Natural Balance Tears 1 drp INSTIL DIRECTED PRN 10/07/19 10/07/19 History mirtazapine 45 mg PO HS 10/07/19 10/07/19 History nitroglycerin 0.4 mg SUBLINGUAL DIRECTED 10/07/19 10/07/19 History sodium chloride [Saline Mist] 2 spray INTRANASAL DIRECTED PRN 10/07/19 10/07/19 History tramadol 25 mg PO Q4H PRN 10/07/19 10/07/19 History Patient History Social History Preferred Language: Citizen Of [place] Current Living Situation: Senior Care Feels Safe at Home: Yes Smoking Status: Unknown if ever smoked Review of Systems Review of Systems: Unobtainable due to cognitive status Physical Exam Physical Exam: PE: Patient calm, no acute distress. HEENT: EOMI, patient appears to hear Respirations: Clear breath sounds, unlabored CV: Regular rate, no edema Abdomen: Soft, nontender Neuro: Nonsensical speech, unable to follow simple commands, unable to answer simple questions by nodding or stating yes or no. FAST score at least a 7 B. Results & Data Vital Signs (Past 12 Hours) Vital Signs Temp Pulse Pulse Resp BP BP Pulse Ox 10/08/19 11:35 98.4 F 84 18 130/48 L 93 10/08/19 08:15 78 10/08/19 07:30 98.2 F 81 18 110/61 93 10/08/19 04:12 98.2 F 84 20 135/74 94 PG Care Time/CCT Total # of Minutes Spent Total Time Spent with Patient: Total time spent 55 minutes with greater than 50% of the time spent at bedside assessing patient's current comfort level as well as level of dementia. Spoke with patient's son and daughter by phone and collaborated with case management. Coding Level of Care Code 65515 Inpt Consult Level 2 Diagnoses Palliative care encounter Z51.5 Senile degeneration of brain G31.1 Vomiting R11.14 Nausea presence: with nausea Vomiting type: bilious vomiting Anemia D64.9 Time Spent (min) 55
--- NOTE | 2019-10-08 17:54 | Hospitalist Progress Note ---
Date of Service October 08, 2019 Assessment & Plan (1) Gastroenteritis: Present on admission with episode of diarrhea COVID [address] abd/pelvis showed gastric distention raises the possibility of nonspecific gastroenteritis. Procalcitonin and WBC normal Has not had any diarrhea so far Continue monitor electrolytes Afib Currently on NSR Coumadin was discontinue due to fall risk that led to fracture Metoprolol was discontinued due to hypotension Will start on low dose metoprolol 12.5 mg Continue monitor Chronic diastolic heart failure CXR showed showed interstitial infiltrative process left lung base. Lungs otherwise appear clear. No sign of volume overload Will monitor closely for fluid overload Diabetes Last Hba1c 5.9 on 06/07 Will check Hba1c Continue monitor BS Pelvis fracture Due to fall CT abd/pelvis showed fractures of the right pubic ring, right symphysis pubis, right sacrum, as well as at multiple levels of the lumbar spine of indeterminate age. Fall precaution PT/OT eval Dementia At baseline Continue seroquel Palliative care on board Palliative team discussed with family and the plan is to go back to [facility] on hospice Case management was notified DVT px on Arixtra CODE status DNR Ms. Colleen Mueller (daughter), contact #[phone]. Imnh Jr. Linden (son), contact #[phone]. Text document was generated using [employer] voice recognition software. It may contain grammatical or spelling errors. Kindly contact undersigned for clarification of any documentation item in question. Admission and Anticipated Discharge Date Admission Date: October 07, 2019 Subjective Pt was seen and examined Lying in bed with no distress Resting comfortable with 1 to 1 sitter Very calm today Physical Exam Physical Exam: General- No acute distress Head- atraumatic Eyes- PERRL, EOMI, ENT- oropharynx clear Neck- supple, no JVD Lungs- clear to auscultation Heart- Tachycardia, +murmur Abdomen- normal bowel sounds, soft, nontender Extremities- no calf tenderness Neuro- alert, confused, move all 4 extremities Skin- warm & dry Results & Data Results & Data ([facility]) Vital Signs (Past 12 Hours) Vital Signs Temp Pulse Pulse Resp BP BP Pulse Ox 10/08/19 16:35 71 10/08/19 15:38 36.7 C 98 H 20 144/81 H 94 10/08/19 11:35 36.9 C 84 18 130/48 L 93 10/08/19 08:15 78 10/08/19 07:30 36.8 C 81 18 110/61 93
[2019-10-09] MEDS: OLANZapine 10 MG/2.1 ML SDV IM PRN (00:31)
[2019-10-09] MEDS: METOPROLOL TARTRATE 25 MG TAB PO SCH (07:50)
[2019-10-09] MEDS: PANTOprazole 40 MG TAB PO SCH (07:51)
[2019-10-09] MEDS: QUETIAPINE FUMARATE 100 MG TABLET PO SCH (07:51)
[2019-10-09] MEDS: FONDAPARINUX 2.5 MG/0.5 ML SYR SQ SCH (07:52)
[2019-10-09] MEDS: INSULIN ASPART 100 UNITS/ML 3 ML PEN SC SCH ×2 (08:57→12:35)
--- NOTE | 2019-10-09 13:09 | Hospitalist Progress Note ---
Date of Service October 09, 2019 Assessment & Plan (1) Gastroenteritis: Present on admission with episode of diarrhea COVID [address] abd/pelvis showed gastric distention raises the possibility of nonspecific gastroenteritis. Procalcitonin and WBC normal Has not had any diarrhea so far Continue monitor electrolytes Afib Currently on NSR Coumadin was discontinue due to fall risk that led to fracture Metoprolol was discontinued due to hypotension Continue metoprolol 25 mg BID Will monitor BP Continue monitor Chronic diastolic heart failure CXR showed showed interstitial infiltrative process left lung base. Lungs otherwise appear clear. No sign of volume overload Will monitor closely for fluid overload Diabetes Most recent Hba1c 5.4 on 10/06/19 Continue monitor BS Pelvis fracture Due to fall CT abd/pelvis showed fractures of the right pubic ring, right symphysis pubis, right sacrum, as well as at multiple levels of the lumbar spine of indeterminate age. Fall precaution PT/OT eval Dementia At baseline Continue seroquel Palliative care on board Palliative team discussed with family and the plan is to go back to [facility] on hospice Case management was notified DVT px on Arixtra CODE status DNR Ms. Colleen Mueller (daughter), contact #[phone]. Minh Jr. Linden (son), contact #[phone]. Text document was generated using [employer] voice recognition software. It may contain grammatical or spelling errors. Kindly contact undersigned for clarification of any documentation item in question. Admission and Anticipated Discharge Date Admission Date: October 08, 2019 Subjective Pt was seen and examined Sitting in bed with no distress with 1 to 1 sitter No abnormal behavior such as agitation noted No signs of any discomfort Physical Exam Physical Exam: General- No acute distress Head- atraumatic Eyes- PERRL, EOMI, ENT- oropharynx clear Neck- supple, no JVD Lungs- clear to auscultation Heart- Tachycardia, +murmur Abdomen- normal bowel sounds, soft, nontender Extremities- no calf tenderness Neuro- alert, confused, move all 4 extremities Skin- warm & dry Results & Data Results & Data ([facility]) Vital Signs (Past 12 Hours) Vital Signs Temp Pulse Resp BP BP Pulse Ox 10/09/19 11:55 36.7 C 95 H 16 118/56 L 123/71 96 10/09/19 07:17 36.7 C 95 H 16 123/71 96
--- NOTE | 2019-10-11 23:46 | Discharge Summary ---
Date of Service October 09, 2019 Admission HPI Per Admitting Provider History obtained from care home staff and records. Medical history significant for chronic diastolic heart failure (EF 63%, TTE 2017), CAD status post CABG, A. fib recently taken off Coumadin, history of mitral valve repair, history of SVT status post ablation, hypertension, hyperlipidemia, pulmonary hypertension, LYNN as per records, DM 2 diet- controlled, BPH as per records, chronic anemia (baseline hemoglobin of 10), hypothyroidism as per records, skin cancer as per records, GERD, dementia. Patient transitioned to [facility] assisted living [facility] last May 2019 because of worsening dementia. As per records, patient noted to have diarrhea the last few days. Imodium initiated at the care home. Patient noted to be eating his feces today. Subsequent emesis. No fever, no chills. No patient complaints of chest pain or shortness of breath. No outpatient testing for C. difficile. Patient's Coumadin stopped a few days ago by care home provider for reasons unknown to care home staff. Patient brought to the ER for evaluation. 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 Admission Exam Per Admitting Provider GENERAL: Demented, slightly restless , no respiratory distress SKIN: Pallor , warm HEENT: Pale palpebral conjunctivae, no ptosis, dry buccal mucosa NECK : Supple, no tenderness CHEST : Decreased breath sounds , no tenderness HEART : Tachycardic , systolic murmur ABDOMEN: Some distention, nontender EXTREMITIES : No LE swelling/tenderness, no other conspicuous deformities noted NEUROLOGIC : Demented, incoherent, no facial asymmetry, no other gross focality Principal Diagnosis Gastroenteritis: Atrial fibrillation Chronic diastolic heart failure Diabetes Pelvis fracture Advanced Dementia Discharge Exam General- No acute distress Head- atraumatic Eyes- PERRL, EOMI, ENT- oropharynx clear Neck- supple, no JVD Lungs- clear to auscultation Heart- Tachycardia, +murmur Abdomen- normal bowel sounds, soft, nontender Extremities- no calf tenderness Neuro- alert, confused, move all 4 extremities Skin- warm & dry Discharge Data Allergies Allergy/AdvReac Type Severity Reaction Status Date / Time heparin Allergy Unknown Unknown Verified 10/07/19 00:11 sulfamethoxazole Allergy Unknown Unknown Verified 10/07/19 00:11 [From Bactrim] trimethoprim [From Bactrim] Allergy Unknown Unknown Verified 10/07/19 00:11 Consultations 10/07/19 01:41 ED Decision to Admit Stat 10/07/19 07:59 Consult Case Management - Discharge Planning Routine 10/07/19 19:10 Consult Palliative Care Routine Ordered Studies 10/06/19 23:25 CT abd pelvis wo con Urgent CT abd pelvis wo con CT DOSE: 395.68 mGy.cm HISTORY: Vomiting, confusion TECHNIQUE: Multiaxial CT images of the abdomen and pelvis were performed without contrast. A dose lowering technique was utilized adhering to the principles of ALARA. COMPARISON STUDY: None. FINDINGS: Limited study due to the absence of intra-abdominal fat. The lung bases are grossly clear. Cardiomegaly. Several vascular calcifications the kidneys are present. No evidence for hydronephrosis. Bowel pattern is nonobstructive. Bladder is midline. No significant free fluid within the cul-de-sac. Air within the biliary ductal system presumably on a postoperative basis. Moderate gastric distention. Nonobstructive bowel pattern. Evidence for fractures of the right pubic ring and right symphysis pubis. Age is indeterminant. Vertical sacral insufficiency fracture right sacrum. Moderate compression deformities L1-L2 and L4. IMPRESSION: 1. Gastric distention raises the possibility of nonspecific gastroenteritis. 2. Otherwise somewhat limited exam due to the absence of fat and contrast. 3. Fractures of the right pubic ring, right symphysis pubis, right sacrum, as well as at multiple levels of the lumbar spine of indeterminate age. ACT 112: Negative or not required by law. The above report was generated using voice recognition software. It may contain grammatical, syntax or spelling errors. Electronically signed by: Price Garcia M.D. 10/07/2019 7:22 AM Dictated: 10/07/19717 Transcribed: 10/07/19717 XR chest 1V portable CLINICAL HISTORY: Vomiting, confusion nausea COMPARISON STUDY: No previous studies for comparison. FINDINGS: Interstitial infiltrative process left lung base. Lungs otherwise appear clear. Mild cardiomegaly post median sternotomy. Total right shoulder arthroplasty. IMPRESSION: Interstitial infiltrate left lung base. ACT 112: Negative or not required by law. The above report was generated using voice recognition software. It may contain grammatical, syntax or spelling errors. Electronically signed by: Price Garcia M.D. 10/07/2019 7:11 AM Dictated: 10/07/19709 Transcribed: 10/07/19709 Hospital Course (1) Gastroenteritis: Present on admission with episode of diarrhea COVID [address] abd/pelvis showed gastric distention raises the possibility of nonspecific gastroenteritis. Procalcitonin and WBC normal Has not had any diarrhea so far Continue monitor electrolytes Afib Currently on NSR Coumadin was discontinue due to fall risk that led to fracture Metoprolol was discontinued due to hypotension Continue metoprolol 25 mg BID Will monitor BP Continue monitor Chronic diastolic heart failure CXR showed showed interstitial infiltrative process left lung base. Lungs otherwise appear clear. No sign of volume overload Will monitor closely for fluid overload Diabetes Most recent Hba1c 5.4 on 10/06/19 Continue monitor BS Pelvis fracture Due to fall CT abd/pelvis showed fractures of the right pubic ring, right symphysis pubis, right sacrum, as well as at multiple levels of the lumbar spine of indeterminate age. Fall precaution PT/OT eval Dementia At baseline Continue seroquel Palliative care on board Palliative team discussed with family and the plan is to go back to [facility] on hospice Case management was notified DVT px on Arixtra CODE status DNR Ms. Colleen Mueller (daughter), contact #[phone]. Mr. Minh RooneyJr. joseph (son), contact #[phone]. Text document was generated using [employer] voice recognition software. It may contain grammatical or spelling errors. Kindly contact undersigned for clarification of any documentation item in question. Total Time Total Time Spent Total Time Spent (In Minutes): 35 minutes Total Time Includes: Examination of the Patient, Discharge Planning, Medication Reconciliation, Communication With Other Providers and Other Discharge Plan Discharge Items Patient Disposition: Hospice - Medical Facility Reason For Visit: TACHY,ABD PAIN;COVID NEGATIVE,NO ISOL NEEDED Discharge Diagnosis: Gastroenteritis: Atrial fibrillation Chronic diastolic heart failure Diabetes Pelvis fracture Advanced Dementia Activity: Resume your previous activity Non-emergency contact: Primary Care Provider Call non-emergency contact if: you have any medication questions Follow-up/Referrals: ANGEL ENCINAS [Primary Care Provider] - Diet: Carb Consistent or DM2 Addtl Attending Provider Instructions: Discharge to [facility] on Hospice Follow up with your primary care provider Dr. Jon Fall precaution aspiration precaution Increase your activity gradually as tolerated If unable to tolerate the metoprolol due to low blood pressure, his physician can discontinue it Pending Studies at Discharge: No Skilled Items Patient informed of condition?: Yes DNR: Yes Discharge Level of Care: Other Communicable Disease: No Discharge Prognosis: Stable Lines: None Urinary Catheter: No Medications and DC Order Prescriptions: New metoprolol tartrate 25 mg Tablet 25 mg PO BID 30 Days Qty: 60 RF: 0 Continued PreserVision AREDS [id number] Tablet 1 tab PO DAILY RF: 0 quetiapine [Seroquel] 100 mg Tablet 100 mg PO DAILY RF: 0 Systane Gel 0.3 % Gel 1 drp OPHTHALMIC (EYE) HS PRN (Reason: irritation) RF: 0 acetaminophen [Tylenol] 325 mg Tablet 650 mg PO DAILY PRN (Reason: Pain) RF: 0 Natural Balance Tears 1 drp INSTIL DIRECTED PRN (Reason: Dry Eyes) RF: 0 nitroglycerin 0.4 mg Tablet, Sublingual 0.4 mg sublingual DIRECTED RF: 0 sodium chloride [Saline Mist] 0.65 % Aerosol,[place] 2 spray INTRANASAL DIRECTED PRN (Reason: dryness) RF: 0 tramadol 50 mg Tablet 25 mg PO Q4H PRN (Reason: Pain) RF: 0 mirtazapine 45 mg Tablet 45 mg PO HS RF: 0 Discharge Orders: Discharge Order (Routine); Ordered 10/09/19 Ordered By: Javier Salcido Admission Data Admit Date/Time: 10/08/19 17:58 Attending Provider: Javier Salcido Admit Provider: Migue George Primary Care Provider: ANGEL ENCINAS Other Providers: Migue George ; Jacklyn Hurd Other Interventions: Discharge Summary Assessment (RN) Last Done: 10/09/19 11:55 DC Date/Time DO NOT enter until pt leaves facility: 10/09/19 14:29
== END 2019-10-09 14:29 | disposition hospice, inpatient (51) | DRG 392 ==
LOC: 2N 23:16 → ED 23:16 → 2N 10-07 04:35